=== PATIENT | male | born 1960 | race Two or more races ===

== ENCOUNTER 2019-08-14 23:53 | Emergency (ER) | payer MEDICAID ==
[~2019-08-14] VITALS: Ht 165.1 cm; Wt 79.4 kg
[2019-08-15 01:33] VITALS: BP 150/89
== END 2019-08-15 01:38 | disposition home or self-care (01) ==
LOC: ER 23:56
DX: J06.9 Acute upper respiratory infection, unspecified (principal)

== ENCOUNTER 2019-11-06 08:23 | Emergency (ER) | payer MEDICAID ==
[~2019-11-06] VITALS: Ht 167.6 cm; Wt 81.6 kg
[2019-11-06 08:28] VITALS: BP 134/79
[2019-11-06] MEDS ORDERED: FLUORESCEIN SOD 1 MG TEST STRIP LEFTEYE ONE (09:30)
[2019-11-06] MEDS ORDERED: TETRACAINE HCL 0.5% OPTH(EYE) SOLN 4ML LEFTEYE ONE (09:30)
== END 2019-11-06 10:30 | disposition home or self-care (01) ==
LOC: ER 08:23
DX: T15.02XA Foreign body in cornea, left eye, initial encounter (principal); X58.XXXA Exposure to other specified factors, initial encounter; Y93.9 Activity, unspecified; Y92.89 Other specified places as the place of occurrence of the external cause; Y99.8 Other external cause status
CPT/HCPCS: 65220